=== PATIENT | male | born 2000 | race American Indian/Alaskan Native ===

== ENCOUNTER 2018-07-09 17:18 | Emergency (ER) | payer SELFPAY ==
[2018-07-09 17:18] VITALS: BMI 24.3
--- NOTE | 2018-07-09 17:50 | ED PDOC ---
Arrival/HPI - General Chief Complaint: Abnormal Skin Integrity Time Seen by Provider: 07/09/18 17:20 Historian: Patient - History of Present Illness Narrative History of Present Illness (Text): 07/09/18 17:45 17 year old M with no significant pmh presents with cc of an itchy rash on arms b/l, abd, back and legs b/l x4days. Patient reports that the rash first appeared on arms then later traveled to abd, back and legs. Patient endorses changing laundry detergents recently. Patient denies any recent travels, tongue itchiness or swelling, seasonal allergies, fevers, chills, headache, shortness of breath, dyspnea on exertion, cough, abdominal pain, nausea, vomiting, diarrhea, back pain, neck pain, or any other complaint. Time/Duration: < week Symptom Course: Unchanged Activities at Onset: Light Context: Home Past Medical History - Provider Review Nursing Documentation Reviewed: Yes - Past History Past History: No Previous - Infectious Disease Hx of Infectious Diseases: None - Tetanus Immunization Tetanus Immunization: Up to Date - Psychiatric Hx Depression: No Hx Emotional Abuse: No Hx Physical Abuse: No Hx Substance Use: No - Anesthesia Hx Anesthesia: No - Suicidal Assessment Feels Threatened In Home Enviroment: No Family/Social History - Physician Review Nursing Documentation Reviewed: Yes Family/Social History: Unknown Family HX Smoking Status: Never Smoked Hx Alcohol Use: No Hx Substance Use: No Hx Substance Use Treatment: No Allergies/Home Meds Allergies/Adverse Reactions: Allergies No Known Allergies Allergy (Verified 07/09/18 17:36) Review of Systems - Physician Review All systems were reviewed & negative as marked: Yes - Review of Systems Constitutional: Normal Eyes: Normal ENT: Normal Respiratory: Normal Cardiovascular: Normal Gastrointestinal: Normal Musculoskeletal: Normal Skin: Rash (arms b/l, abd, back and legs b/l) Neurological: Normal Endocrine: Normal Hemo/Lymphatic: Normal Psychiatric: Normal Physical Exam Vital Signs Reviewed: Yes Temperature: Afebrile Blood Pressure: Normal Pulse: Tachycardic Respiratory Rate: Normal Appearance: Positive for: Well-Appearing Pain Distress: None Mental Status: Positive for: Alert and Oriented X 3 - Systems Exam Head: Present: Atraumatic, Normocephalic Pupils: Present: PERRL Extroacular Muscles: Present: EOMI Conjunctiva: Present: Normal Mouth: Present: Moist Mucous Membranes Neck: Present: Normal Range of Motion Respiratory/Chest: Present: Clear to Auscultation, Good Air Exchange. No: Respiratory Distress, Accessory Muscle Use Cardiovascular: Present: Regular Rate and Rhythm, Normal S1, S2. No: Murmurs Abdomen: No: Tenderness, Distention, Peritoneal Signs Back: Present: Normal Inspection Upper Extremity: Present: Normal Inspection. No: Cyanosis, Edema Lower Extremity: Present: Normal Inspection. No: Edema Neurological: Present: GCS=15, Speech Normal Skin: Present: Rashes (arms b/l, abd, back and legs b/l) Psychiatric: Present: Alert, Oriented x 3, Normal Insight, Normal Concentration Medical Decision Making ED Course and Treatment: 07/09/18 17:51 Impression: 17 year old M presents with cc of an itchy rash on arms b/l, abd, back and legs b/l x4days Differential Diagnosis included but are not limited to: --Contact dermatitis --Allergic Reaction Plan: --Benadryl --Pepcid --Prednisone Tab -- Reassess and disposition Prior Visits: Notes and results from previous visits were reviewed. Patient was last seen in the emergency department on Progress Notes: 07/09/18 18:21 - PA / CHURN OPERATOR MARGARINE / Resident Statement MD/DO has reviewed & agrees with the documentation as recorded. - Scribe Statement The provider has reviewed the documentation as recorded by the Naseem Lara All medical record entries made by the Naseem were at my direction and personally dictated by me. I have reviewed the chart and agree that the record accurately reflects my personal performance of the history, physical exam, medical decision making, and the department course for this patient. I have also personally directed, reviewed, and agree with the discharge instructions and disposition. Disposition/Present on Arrival - Present on Arrival Any Indicators Present on Arrival: No History of DVT/PE: No History of Uncontrolled Diabetes: No Urinary Catheter: No History of Decub. Ulcer: No History Surgical Site Infection Following: None - Disposition Have Diagnosis and Disposition been Completed?: Yes Diagnosis: Allergic reaction Disposition: HOME/ ROUTINE Disposition Time: 18:23 Patient Plan: Discharge Condition: STABLE Discharge Instructions (ExitCare): Allergy Skin Testing Print Language: PORTUGUESE Additional Instructions: All medical record entries made by the Alyssaibjere were at my direction and personally dictated by me. I have reviewed the chart and agree that the record accurately reflects my personal performance of the history, physical exam, medical decision making, and the department course for this patient. I have also personally directed, reviewed, and agree with the discharge instructions and disposition. Prescriptions: DiphenhydrAMINE [Benadryl] 50 mg PO Q6H #10 cap Epinephrine [Epipen] 0.3 mg IJ ONCE #1 auto.injct Famotidine [Pepcid] 40 mg PO DAILY #10 tablet Methylprednisolone [Medrol Dose Pack (21 tabs)] 4 mg PO DAILY #21 mg Referrals: Marina Mike MD [Medical Doctor] - Follow up with primary [facility] [Outside] - Follow up with primary Forms: [employer] (Kenyan)
[2018-07-09 17:54] VITALS: RESP 18; TEMP 97.9; O2SAT 98
[2018-07-09 18:43] VITALS: BP 112/72; PULSE 80
== END 2018-07-09 18:43 | disposition home or self-care (01) ==
LOC: ED 17:18
DX: T78.40XA Allergy, unspecified, initial encounter (principal); X58.XXXA Exposure to other specified factors, initial encounter

== ENCOUNTER 2018-07-13 13:20 | Emergency (ER) | payer MEDICAID, OTHER ==
[2018-07-13 13:20] VITALS: BMI 24.3
[2018-07-13 13:47] VITALS: RESP 18
--- NOTE | 2018-07-13 14:56 | ED PDOC ---
Arrival/HPI - General Historian: Patient, Parent - History of Present Illness Narrative History of Present Illness (Text): 07/13/18 18:52 17 y/o male with no significant PMH presents to the ED c/o rash x 6 days. Rash is very pruritic, began on the extremities and has now spread to trunk and face, as well as the palms and soles of feet. Pt was seen here on 07/09 and diagnosed with allergic reaction, sent home with medrol dose pack, benadryl, and pepcid. Has been taking the medications as prescribed without relief. Admits to being sexually active and using condoms, but also admits to a few unprotected sexual encounters a few months ago. No recent travel. Denies fever, chills, cough, congestion, penile discharge, testicular tenderness, testicular swelling, penile lesions, joint pain, myalgias, nausea, vomiting, dizziness, or any other associated symptoms. <Maryan Hernandez - Last Filed: 07/14/18 14:04> <Freedom Anderson - Last Filed: 07/15/18 09:06> - General Chief Complaint: Abnormal Skin Integrity Time Seen by Provider: 07/13/18 13:29 Past Medical History - Provider Review Nursing Documentation Reviewed: Yes - Past History Past History: No Previous - Infectious Disease Hx of Infectious Diseases: None - Tetanus Immunization Tetanus Immunization: Up to Date - Psychiatric Hx Depression: No Hx Emotional Abuse: No Hx Physical Abuse: No Hx Substance Use: No - Anesthesia Hx Anesthesia: No - Suicidal Assessment Feels Threatened In Home Enviroment: No <Maryan Hernandez - Last Filed: 07/14/18 14:04> Family/Social History - Physician Review Nursing Documentation Reviewed: Yes Family/Social History: No Known Family HX Smoking Status: Never Smoked Hx Alcohol Use: No Hx Substance Use: No Hx Substance Use Treatment: No <Maryan Hernandez - Last Filed: 07/14/18 14:04> Allergies/Home Meds <Maryan Hernandez - Last Filed: 07/14/18 14:04> <Freedom Anderson - Last Filed: 07/15/18 09:06> Allergies/Adverse Reactions: Allergies No Known Allergies Allergy (Verified 07/13/18 13:28) Review of Systems - Review of Systems Constitutional: Normal. absent: Fatigue, Fevers Eyes: Normal. absent: Vision Changes, Photophobia, Eye Pain ENT: Normal. absent: Sore Throat, Sinus Congestion, Other (no mouth lesions) Respiratory: Normal. absent: SOB, Cough Cardiovascular: Normal. absent: Chest Pain, Palpitations Gastrointestinal: Normal. absent: Abdominal Pain, Stool Changes, Nausea, Vomiting, Appetite Changes Genitourinary Male: Normal. absent: Dysuria, Frequency, Other (no genital lesions) Musculoskeletal: Normal. absent: Arthralgias, Back Pain, Neck Pain, Joint Swel ling, Myalgias Skin: Rash Neurological: Normal. absent: Headache, Dizziness, Focal Weakness, Facial Droop, Disequilibrium Endocrine: Normal. absent: Diaphoresis Hemo/Lymphatic: Normal. absent: Adenopathy Psychiatric: Normal <Maryan Hernandez - Last Filed: 07/14/18 14:04> Physical Exam Vital Signs Reviewed: Yes Vital Signs Temp Pulse Resp BP Pulse Ox 07/13/18 13:47 97.7 F 95 H 18 125/81 98 Temperature: Afebrile Blood Pressure: Normal Pulse: Regular Respiratory Rate: Normal Appearance: Positive for: Well-Appearing, Non-Toxic, Comfortable Pain Distress: None Mental Status: Positive for: Alert and Oriented X 3 - Systems Exam Head: Present: Atraumatic, Normocephalic Pupils: Present: PERRL Extroacular Muscles: Present: EOMI Conjunctiva: Present: Normal Ears: Present: Normal, NORMAL TM, Normal Canal Mouth: Present: Moist Mucous Membranes Pharnyx: Present: Normal. No: ERYTHEMA, EXUDATE, TONSILS ENLARGED Neck: Present: Normal Range of Motion. No: Meningeal Signs, Paraspinal Tenderness Respiratory/Chest: Present: Clear to Auscultation, Good Air Exchange. No: Respiratory Distress, Accessory Muscle Use Cardiovascular: Present: Regular Rate and Rhythm, Normal S1, S2, Peripheal Pulses Present Abdomen: Present: Normal Bowel Sounds. No: Tenderness, Distention, Peritoneal Signs, Rebound, Guarding Genitourinary Male: Present: Normal External Genitalia, Circumcised Penis. No: Lesions, Penile Discharge, Testicle Tenderness, Penile Swelling, Masses, Erythema, Testicle Swelling Back: Present: Normal Inspection. No: CVA Tenderness, Paraspinal Tenderness Upper Extremity: Present: Normal Inspection, Normal ROM, NORMAL PULSES, Neurovascularly Intact, Capillary Refill < 2s. No: Cyanosis, Edema, Temperature Abnormalties Lower Extremity: Present: Normal Inspection, NORMAL PULSES, Normal ROM, Ne urovascularly Intact, Capillary Refill < 2 s. No: Edema, Temperature Abnormalties Neurological: Present: GCS=15, CN II-XII Intact, Speech Normal, Motor Func Grossly Intact, Normal Sensory Function, Gait Normal Skin: Present: Warm, Dry, Rashes ( diffuse papular rash that is coalesced in places with scabbing from itching, in similar stage of healing; including palms of hands and soles of feet; no petechiae or purpura). No: Abscess, Other (no signs of cellulitis ) Lymphatic: No: Cervical Adenopathy Psychiatric: Present: Alert, Oriented x 3, Normal Insight, Normal Concentration, Normal Affect, Normal Mood <Maryan Hernandez - Last Filed: 07/14/18 14:04> Vital Signs Temp Pulse Resp BP Pulse Ox 07/13/18 13:47 97.7 F 95 H 18 125/81 98 <Freedom Anderson - Last Filed: 07/15/18 09:06> Medical Decision Making ED Course and Treatment: Initial Plan: * Dermatology Consult ED attending, Dr. Anderson discussed case with dermatology applications programmer, Dr. Nika Spivey, who states rash is most likely viral. Advises CBC, CMP, Varicella IGG and IGM, as well as RPR. Pt is to followup with Dr. Almanzar office tomorrow in [facility]. Bloodwork reviewed, unremarkable. RPR and Varicella pending Patient examined at bedside by ED attending Dr Anderson who agrees with disposit ion. Discussed the plan of care and importance of followup with mother and patient, who verbalize understanding. They understand that they most call the provided contact number to schedule an appointment with Dr. Spivey. Pt was instructed to continue medrol dose pack and benadryl for itching. Advised PMD followup as well. Diagnostic testing results and plan of care discussed with patient. Strict instructions given regarding prescription use, importance of followup, and signs/symptoms to return to ER including fever, chills, worsening rash, or any other new/worsening symptoms. Pt verbalized understanding of discussion. Patient is A&Ox3, ambulating with steady gait, with vital signs stable for discharge. - Lab Interpretations Lab Results: 07/13/18 15:41 07/13/18 15:41 Lab Results 07/13/18 15:41: VZV IgG Antibody 188.70, VZV IgM Antibody Pending 07/13/18 15:41: RPR Nonreactive 07/13/18 15:41: Sodium 141, Potassium 4.0, Chloride 102, Carbon Dioxide 30, Anion Gap 12, BUN 13, Creatinine 0.9, Est GFR ( Amer) > 60, Est GFR (Non- Af Amer) > 60, Random Glucose 90, Calcium 9.9, Total Bilirubin 0.8, AST 30, ALT 11, Alkaline Phosphatase 59, Total Protein 8.7 H, Albumin 4.8, Globulin 3.9, Albumin/Globulin Ratio 1.2 07/13/18 15:41: WBC 5.8, RBC 4.80, Hgb 14.9, Hct 43.7, MCV 91.0, MCH 31.0, MCHC 34.1, RDW 13.1, Plt Count 258, MPV 10.3, Neut % (Auto) 62.4, Lymph % (Auto) 19.3 L, Christian % (Auto) 7.4 H, Eos % (Auto) 10.4 H, Baso % (Auto) 0.5, Lymph # (Auto) 1.1 L, Christian # (Auto) 0.4, Eos # (Auto) 0.6, Baso # (Auto) 0.03, Absolute Neuts (auto) 3.64 I have reviewed the lab results: Yes Interpretation: All labs normal <Maryan Hernandez - Last Filed: 07/14/18 14:04> ED Course and Treatment: 07/13/18 15:12 I discussed this with ROBERT and evaluated the patient. Agree with history and physical, disposition and plan of note. I discussed this case with Dr. Nika Spivey, Dermatology, in detail who I explained the history and physical to. She states since it's itchy it's most likely viral but to make sure to send a CBC, CMP, Varicella IGG/IGM Titers and RPR which I ordered. Patient and mother was informed that he should follow up with Dr. Spivey tomorrow at her [place] office or with her office in [place] on Wednesday. ROBERT Hernandez will give further instructions. Contact information was verified by registration to make sure we could call with any abnormal results. <Freedom Anderson - Last Filed: 07/15/18 09:06> - PA / HIDE INSPECTOR AND SORTER / Resident Statement ROSEMARIE has reviewed & agrees with the documentation as recorded. ROSEMARIE has examined the patient and agrees with the treatment plan. <Freedom Anderson - Last Filed: 07/15/18 09:06> Disposition/Present on Arrival - Present on Arrival Any Indicators Present on Arrival: No History of DVT/PE: No History of Uncontrolled Diabetes: No Urinary Catheter: No History of Decub. Ulcer: No History Surgical Site Infection Following: None - Disposition Have Diagnosis and Disposition been Completed?: Yes Disposition Time: 16:15 <Maryan Hernandez - Last Filed: 07/14/18 14:04> <Freedom Anderson - Last Filed: 07/15/18 09:06> - Disposition Diagnosis: Rash Disposition: HOME/ ROUTINE Condition: GOOD Discharge Instructions (ExitCare): Skin Rash (DC) Additional Instructions: Followup with dermatology tomorrow Continue home medications Increase fluids Rest, no strenuous activity Return to ER with any new/worsening symptoms Referrals: Nika Spivey MD [Staff Provider] - Follow up with primary Forms: [facility] (Uzbek), WORK NOTE
[2018-07-13 16:04] LABS: ALB/GLOB RATIO 1.2 (1.1-1.8); ALBUMIN 4.8 g/dL (3.0-4.8); ALT/SGPT 11 U/L (7-56); AST/SGOT 30 U/L (17-59); BLOOD UREA NITROGEN 13 mg/dL (7-21); CALCIUM 9.9 mg/dL (8.4-10.5); GFR NON-AFRICAN AMERICAN > 60
[2018-07-13 16:06] LABS: BASO # 0.03 K/mm3 (0.0-2.0); BASO % 0.5 % (0.0-3.0); EOS # 0.6 (0.0-0.7); EOS % 10.4 % (1.5-5.0); HEMOGLOBIN 14.9 g/dL (14.0-18.0); LYMPH # 1.1 (1.2-3.4); LYMPH % 19.3 % (22.0-35.0); MEAN CORPUSCULAR HGB CONC 34.1 g/dl (31.0-37.0); MEAN PLATELET VOLUME 10.3 fl (7.0-11.0); MONO # 0.4 (0.1-0.6); MONO % 7.4 % (1.0-6.0); RBC 4.8 10^6/uL (3.5-6.1); RED CELL DISTRIBUTION WIDTH 13.1 % (11.5-14.5); WHITE BLOOD COUNT 5.8 10^3/uL (4.5-11.0)
[2018-07-13 16:29] VITALS: BP 128/76; PULSE 87; TEMP 98.2; O2SAT 100
== END 2018-07-13 16:28 | disposition home or self-care (01) ==
LOC: ED 13:20
DX: R21 Rash and other nonspecific skin eruption (principal)